=== PATIENT | female | born 1960 | race Caucasian/White ===

== ENCOUNTER 2020-07-01 06:19 | Inpatient (IN) | payer OTHER ==
[~2020-07-01 06:19] MED LIST: ASPIRIN EC81 MG PO; BACLOFEN 20MG T20 MG PO; CRESTOR20 MG PO; FLONASE ALLER15.8 ML; GABAPENTIN600 MG PO; INDOCIN25 MG PO; JARDIANCE25 MG PO; LASIX40 MG PO; OZEMPIC1 MG/0.75 SC; VENTOLIN HFA IN18 GM INH; VICODIN 10/3251 EACH PO; ZOLOFT50 MG PO
[2020-07-01 08:32] LABS: BUN/CREAT RATIO (CALC) 11.5 RATIO; CREATININE 0.78 mg/dL (0.51-0.95); POTASSIUM 3.5 mmol/L (3.5-5.1)
[2020-07-01] MEDS ORDERED: PERCOCET 5-3251 EACH PO (12:48)
--- NOTE | 2020-07-01 13:51 | NUR ---
PT REPORTS THEY LEAVE ALONE; INDEPENDENT WITH CARE; PLEASE ADVISE OF DISCHARGE NEEDS
[2020-07-02 06:17] LABS: BASOPHIL 0.2 % (0-2); EOSINOPHIL 0.1 % (0-5); HCT 31.5 % (37.0-47.0); HGB 10.5 g/dl (12.5-16.0); LYMPHOCYTE 9.2 % (15-48); MCH 31.6 pg (25.0-31.0); MCHC 33.3 g/dL (32.0-36.0); MCV 94.9 fL (78.0-100.0); MONOCYTE 7.6 % (0-12); MPV 11.2 fL (6.0-9.5); NEUTROPHIL 82.2 % (41-80); NRBC 0; PLT 155 K/uL (150-400); RBC 3.32 M/uL (4.20-5.40); RDW 14.1 % (11.5-14.0); WBC 13.7 K/uL (4.0-10.5)
[2020-07-02 06:35] LABS: BUN/CREAT RATIO (CALC) 20.6 RATIO; CREATININE 0.63 mg/dL (0.51-0.95); POTASSIUM 4.1 mmol/L (3.5-5.1)
[2020-07-02] MEDS ORDERED: FEOSOL325 MG PO (08:39)
[2020-07-02] MEDS ORDERED: ASPIRIN325 MG PO ×2 (08:39→08:40)
== END 2020-07-02 10:50 | disposition home or self-care (01) | DRG 483 ==
LOC: FSDC 06:19 → FMS 10:31
PROVIDERS: Anesthesiology; ADMIT Legal Medicine
PROC: 0RRJ00Z Replacement of Right Shoulder Joint with Reverse Ball and Socket Synthetic Substitute, Open Approach (ICD-10-PCS; principal; 2020-07-01 08:30)
DX: M19.011 Primary osteoarthritis, right shoulder (principal); E11.9 Type 2 diabetes mellitus without complications; I25.10 Atherosclerotic heart disease of native coronary artery without angina pectoris; G89.4 Chronic pain syndrome; M54.9 Dorsalgia, unspecified
CPT/HCPCS: 36415; 73020; 80048; 85025; 86850; 86900; 86901; 94010; 94762; 97116; 97162; 97166; 97530-GP; 97535; C1713; C1776; J0171; J0697; J0735; J1100; J1885; J2250; J2270; J2704; J2710; J2795; J3010; J7120; U0002